=== PATIENT | female | born 1955 | race Caucasian/White ===

== ENCOUNTER → 2017-12-03 | Outpatient (CLI) | payer MEDICARE, OTHER ==
--- NOTE | 2017-12-06 08:24 | MM ---
Reason for exam: additional evaluation requested from prior study. Last mammogram was performed 1 year and 4 months ago. History: Patient is postmenopausal. Benign US breast needle core LT of the left breast, July 27, 2016. Benign US breast needle core addl LT of the left breast, July 27, 2016. Physical Findings: Nurse did not find any significant physical abnormalities on exam. MG 3D Diag Mammo W/Cad RAVI Bilateral CC and MLO view(s) were taken. Prior study comparison: July 27, 2016, left breast MG diagnostic mammo LT wo CAD. July 15, 2016, left breast MG 3d work up w/cad LT. The breast tissue is heterogeneously dense. This may lower the sensitivity of mammography. Stable benign calcifications. There is chronic nodularity bilaterally. There is no dominant lesion. These results were verbally communicated with the patient and result sheet given to the patient on 12/03/17. ASSESSMENT: Incomplete: need additional imaging evaluation, BI-RAD 0 RECOMMENDATION: Ultrasound of the left breast.
--- NOTE | 2017-12-06 08:26 | USB ---
Reason for exam: additional evaluation requested from prior study. History: Patient is postmenopausal. Benign US breast needle core LT of the left breast, July 27, 2016. Benign US breast needle core addl LT of the left breast, July 27, 2016. US Breast LT Left breast ultrasound includes all four quadrants, the retroareolar region and axilla. Finding demonstrates a 6 x 4 x 5mm oval, cystic lesion at 6 o'clock seen on previous and a 6 x 4 x 4mm irregular, hypoechoic lesion at 7 o'clock previously biopsied, smaller in size. These results were verbally communicated with the patient and result sheet given to the patient on 12/03/17. ASSESSMENT: Benign, BI-RAD 2 RECOMMENDATION: Routine screening mammogram of both breasts in 1 year.
== END | disposition home or self-care (01) ==
LOC: RADMAMWWP 13:57
PROVIDERS: ATTEND Family Medicine
DX: R92.8 Other abnormal and inconclusive findings on diagnostic imaging of breast (principal); N64.9 Disorder of breast, unspecified
CPT/HCPCS: 77066; 76641; G0279

== ENCOUNTER → 2017-12-10 | Outpatient (CLI) | payer MEDICARE, OTHER | END | disposition home or self-care (01) | LOC: LABWHC1 10:02 | PROVIDERS: ATTEND Physical Medicine & Rehabilitation | DX: M47.27 Other spondylosis with radiculopathy, lumbosacral region (principal); M96.1 Postlaminectomy syndrome, not elsewhere classified; M43.16 Spondylolisthesis, lumbar region; N28.9 Disorder of kidney and ureter, unspecified | CPT/HCPCS: 36415; 82565; 84520 ==

== ENCOUNTER → 2018-08-08 | Outpatient (CLI) | payer MEDICARE, OTHER ==
--- NOTE | 2018-08-08 15:44 | XR ---
EXAMINATION TYPE: XR shoulder complete LT DATE OF EXAM: 08/08/2018 COMPARISON: NONE HISTORY: 62 year-old female left shoulder pain TECHNIQUE: 3 views FINDINGS: AC joint appears congruent. Subacromial space is preserved. No tendinous or bursal calcifications. No acute fracture, subluxation, or dislocation seen. Median sternotomy wires are present. IMPRESSION: No acute osseous abnormality seen.
== END ==
LOC: RADXRMAIN 11:50
PROVIDERS: ATTEND Family Medicine
DX: M25.512 Pain in left shoulder (principal)

== ENCOUNTER → 2022-09-11 | Outpatient (CLI) | payer MEDICARE ==
--- NOTE | 2022-09-11 16:48 | MR ---
EXAMINATION TYPE: MR cervical spine wo con DATE OF EXAM: 09/11/2022 COMPARISON: None HISTORY: Right sided neck pain, can't raise right arm, right arm pain TECHNIQUE: Multiplanar, multisequence images of the cervical spine were acquired without contrast. Findings: The craniovertebral junction relationships and prevertebral soft tissues are normal. The cervical vertebral segments are normal in height and alignment and there is no fracture or sublux ation. The C2-3, C3-4 and C4-5 intervertebral discs are normal in height without significant disc space narr owing or degeneration. There is mild to moderate degenerative disease at the C3-5-6 and C6-7 levels where there is mild to m oderate disc space narrowing and posterior disc bulge. There are no focal cervical disc herniations. There is mild cervical stenosis at the C5-6 and C6-7 levels. There is moderate neural foraminal steno sis 5 6 level bilaterally. The remaining neuroforamina in the cervical region are patent. The cervical cord is normal in size and signal intensity myelomalacia There are no paraspinal soft tissue masses or fluid collections. IMPRESSION: 1. Moderate degenerative disease at the C5-6 and C6-7 levels. 2. Mild cervical stenosis at the C5-6 and C6-7 levels. 3. Moderate neural foraminal stenosis at C5-6 bilaterally. 4. ormal cervical cord.
== END | disposition home or self-care (01) ==
LOC: RADMRIMAIN 15:31
PROVIDERS: ATTEND Family Medicine
DX: M48.02 Spinal stenosis, cervical region (principal); M99.71 Connective tissue and disc stenosis of intervertebral foramina of cervical region; M50.122 Cervical disc disorder at C5-C6 level with radiculopathy
CPT/HCPCS: 72141

== ENCOUNTER → 2023-01-07 | Outpatient (CLI) | payer MEDICARE ==
--- NOTE | 2023-01-07 12:13 | XR ---
EXAMINATION TYPE: XR chest 2V DATE OF EXAM: 01/07/2023 12:07 PM COMPARISON: Chest radiograph 10/23/2015. TECHNIQUE: XR chest 2V Frontal and lateral views of the chest. CLINICAL INDICATION:Female, 67 years old with history of CHEST; FINDINGS: Lungs/Pleura: There is no evidence of pleural effusion, focal consolidation, or pneumothorax. Pulmonary vascularity: Unremarkable. Heart/mediastinum: Cardiomediastinal silhouette is unremarkable. Musculoskeletal: No acute osseous pathology. Mild degenerative changes of the thoracic spine. Midline sternotomy wires and surgical clips project over the mediastinum. IMPRESSION: No acute cardiopulmonary disease/process.
== END | disposition home or self-care (01) ==
LOC: RADXRMAIN 11:54
PROVIDERS: ATTEND Orthopaedic Surgery Orthopaedic Surgery of the Spine
DX: R07.9 Chest pain, unspecified (principal)
CPT/HCPCS: 71046

== ENCOUNTER 2023-01-13 10:21 | Day surgery (SDC) | payer MEDICARE ==
[2023-01-07 15:12] VITALS: BMI 31.3
[~2023-01-13 10:21] MED LIST: DEXAMETHASONE SOD PHOSPHATE 4 MG/ML 1 ML VIAL IV ONE; HYDROmorphone 0.5 MG/0.5 ML SYRINGE IVP PRN; LIDOCAINE 1% (10MG/ML) FOR IV START INTRADERMA PRN; ONDANSETRON 4 MG/2 ML VIAL IVP ONE; ceFAZolin 1,000 MG in SODIUM CHLORIDE 0.9% IRRIGATIO 1,000 ML IRRIGATION PRN
[2023-01-13] MEDS: LACTATED RINGERS 1,000 ML IV SCH (10:56)
[2023-01-13 11:01] LABS: Glucose,Whole Blood 125 mg/dL (70-110)
[2023-01-13] MEDS ORDERED: fentaNYL (PF) 50 MCG/ML 2 ML AMP ONE (11:34)
[2023-01-13] MEDS ORDERED: ePHEDrine 50 MG/ML 1 ML VIAL ONE (11:34)
[2023-01-13] MEDS ORDERED: LIDOCAINE 2% INJ 20 MG/ML (2 ML VIAL) ONE (11:34)
[2023-01-13] MEDS ORDERED: MIDAZOLAM 2 MG/2 ML VIAL ONE (11:34)
[2023-01-13] MEDS ORDERED: SUCCINYLCHOLINE CHLORIDE 200 MG/10 ML VIAL IV ONE (11:34)
[2023-01-13] MEDS ORDERED: PROPOFOL 10 MG/ML 20 ML VIAL IV ONE (11:34)
[2023-01-13] MEDS ORDERED: THROMBIN (BOVINE) 5,000 UNIT VIAL TOPICAL ONE (11:39)
[2023-01-13] MEDS ORDERED: GELATIN SPONGE,ABSORB (LARGE) 1 EACH SPONGE TOPICAL ONE (11:39)
[2023-01-13] MEDS ORDERED: LIDOCAINE 0.5%-EPI 1:200,000 50 ML VIAL SQ ONE (11:39)
--- NOTE | 2023-01-13 13:00 | XR ---
EXAMINATION TYPE: XR cervical spine 1V DATE OF EXAM: 01/13/2023 12:35 PM INDICATION: Patient age:Female; 67 years old; Reason for study: NEEDLE PLACEMENT; COMPARISON: 10/23/2015 TECHNIQUE: The cervical spine was imaged in a single lateral intraoperative view. FINDINGS: Endotracheal tube in appropriate position. Multilevel degeneration changes throughout the spine. Surg ical needle placed at C5-C6 disc space IMPRESSION: Needle placed at C5-C6 disc space.
[2023-01-13] MEDS ORDERED: LACTATED RINGERS 1,000 ML IV ONE (13:09)
[2023-01-13] MEDS ORDERED: HYDROmorphone 1 MG/ML 1 ML SYRINGE IVP PRN (13:35)
[2023-01-13] MEDS ORDERED: CYCLOBENZAPRINE 5 MG TAB PO PRN (13:35)
[2023-01-13] MEDS ORDERED: HYDROcodone/APAP 5-325MG 1 EACH TAB PO PRN (13:35)
[2023-01-13] MEDS ORDERED: ONDANSETRON 4 MG/2 ML VIAL IVP PRN (13:35)
[2023-01-13] MEDS ORDERED: BENZOCAINE/MENTHOL LOZENG 1 EACH LOZENGE MUCOUS MEM PRN (13:35)
[2023-01-13] MEDS ORDERED: HYDROmorphone 0.5 MG/0.5 ML SYRINGE IVP PRN (13:35)
[2023-01-13] MEDS ORDERED: oxyCODONE-APAP 7.5-325MG 1 EACH TAB PO PRN (13:36)
--- NOTE | 2023-01-13 13:41 | P.OP ---
Date of Procedure: 01/13/23 Preoperative Diagnosis: Cervical stenosis C5 6 C6 7, herniated nucleus pulposis C5 6 C6 7, upper extremity radiculopathy, upper extremity weakness, degenerative disc disease, neck pain Postoperative Diagnosis: Same Anesthesia: GETA Pathology: none sent Condition: stable Disposition: PACU Description of Procedure: BRIEF OPERATIVE NOTE Preoperative Diagnosis:Cervical stenosis C5 6 C6 7, herniated nucleus pulposis C5 6 C6 7, upper extremity radiculopathy, upper extremity weakness, degenerative disc disease, neck pain Postoperative Diagnosis:Cervical stenosis C5 6 C6 7, herniated nucleus pulposis C5 6 C6 7, upper extremity radiculopathy, upper extremity weakness, degenerative disc disease, neck pain Procedure: Anterior cervical decompression with discectomy and fusion C5 6 C6 7 Placement of interbody graft C5 6 C6 7 Application of anterior cervical plate C5 6 and 7 Surgeon: Dr. Justice Systems Manager: Oni Jessica is present throughout the entire the case persistence during positioning, dissection, exposure, visualization, and all crucial elements of the case as well as closure. Anesthesia: General anesthesia per Dr. Bhat Estimated blood loss: Approximately 50 mL Complications: None apparent Components implanted: Vikos allograft bone graft and 1 mL of DBX bone putty and K2M [place] anterior cervical plate system Disposition: To recovery room in good stable condition. OPERATIVE INDICATIONS The patient has had long-standing issues in their neck and upper extremities. She has been having significant neck and upper extremities with some weakness in her arm. She was found have severe stenosis with disc herniation at C5 6 and C6 7 which correlated well with her neck and upper extremity symptoms. The patient has been through conservative treatment. We discussed various treatment options including surgery, and the patient wishes to proceed with surgery We discussed the risk, patient's alternatives and benefits of surgery including but not limited to, risk of bleeding risk of infection, risk of need for further surgery, risk of decreased, loss of motion, muscle function, malunion nonunion, hardware failure, nerve damage, paralysis, heart attack, and . OPERATIVE SUMMARY After discussing all the risks, patient alternatives and benefits at length, the patient elected to proceed with surgical intervention, signed informed consent, and presented for their procedure. The patient was seen and examined in the preoperative holding area and the surgical site was marked. The patient was given antibiotics and brought to the operating room. The patient was positioned on the operating room table in a supine position being careful to pad any bony prominences and pressure points. The patient was sedated and intubated by anesthesia in standard fashion. Once the airway and C- spine were stabilized the patient's arms were padded and tucked at her side, with her shoulders gently taped. The head was placed in a donut pad with the neck in good neutral alignment and position. We were careful to maintain the patient's cervical spine and good neutral alignment and position throughout. The patient was prepped and draped in a normal standard fashion. An appropriate timeout and keystone protocol performed. We were able to proceed with the surgery. The local wound area was infiltrated with local anesthetic. An incision was made transversely approximately 2-1/2 cm over the appropriate levels at C6. Dissection was taken down subcutaneously to the level of the platysma which was split in line with its fibers. Dissection was taken with a carotid approach, with the trachea and esophagus medial and the carotid sheath laterally. We dissected down to the anterior surface of the vertebral bodies. Intraoperative x-ray was taken which showed a marker at the appropriate level at C5 6. With the appropriate level positively confirmed, we were able to proceed with discectomy at the appropriate levels first at C5 6 and then at C6 7. All of the operative levels were exposed appropriately. The patient had all their twitches back, and there was no evidence of recurrent laryngeal issue. The wound was copiously irrigated and suctioned dry as had been done periodically throughout the case. At the appropriate level/levels, starting at C5 6 and C6 7 I established an annulotomy with an 11 blade scalpel. A discectomy was performed with a combination of pituitary rongeurs, curettes, a high-speed bur, and Kerrison rongeurs. The posterior longitudinal ligament was taken down as were any posterior osteophytes. This gave good central and bilateral foraminal decompression. There is no evidence of any dural tear or leak. The endplates were prepared with a high-speed bur. With the endplates in good parallel position, I was able to size for the appropriate size interbody graft. The wound was irrigated and suctioned dry the graft was prepared and malleted into position. It had good alignment and position with the anterior surface flush with the anterior surface of the vertebral bodies of C5 6 and 70. This was done similarly the appropriate levels. With the grafts intact, I was able to measure and contour and appropriate sized plate. The plate was positioned at the midline over the appropriate levels at C5 6 and 7. Screw holes were established with a hand drill and drill guide. Screws were placed in good alignment and position with excellent bony purchase. They were seated under the locking device. The construct was checked and found to be stable. Intraoperative x-ray was taken which showed good alignment and position of the implants at the appropriate levels. There was no evidence of any dural tear or leak. Good hemostasis was maintained. The wound was copiously irrigated and suctioned dry as had been done periodically throughout the case. The platysma was closed with absorbable suture. The subcutaneous tissue was closed. The subcuticular tissue was closed with absorbable suture. The wound was cleaned and dried and dressed appropriately. A soft cervical collar was placed appropriately. The patient was woken up by anesthesia, extubated, transferred back gently to their hospital bed and brought to the recovery room in good stable condition. The patient will be admitted to the hospital for appropriate postoperative care, medical management and monitoring. We will continue to follow them closely about the postoperative course.
--- NOTE | 2023-01-13 13:57 | XR ---
EXAMINATION TYPE: XR cervical spine 1V DATE OF EXAM: 01/13/2023 1:37 PM INDICATION: Patient age:Female; 67 years old; Reason for study: HARDWARE PLACEMENT; COMPARISON: 01/13/2023 intraoperative. TECHNIQUE: The cervical spine was imaged in frontal, lateral, and odontoid. FINDINGS: Fixation hardware in the cervical spine extending from C5-C6 and C7. Hardware appears intact. Endotra cheal tube in place. Postsurgical changes with hardware in appropriate. No evidence for acute fracture. IMPRESSION: Postsurgical changes with hardware in appropriate position.
[2023-01-13 14:50] LABS: Glucose,Whole Blood 108 mg/dL (70-110)
[2023-01-13] MEDS ORDERED: SODIUM CHLORIDE 0.9% 1,000 ML IV ONE (14:59)
[2023-01-13] MEDS: SODIUM CHLORIDE 0.9% 1,000 ML IV SCH (16:08)
[2023-01-13] MEDS ORDERED: PRAZOSIN 1 MG CAP PO SCH (21:00)
[2023-01-13] MEDS ORDERED: traZODone HCL 50 MG TAB PO SCH (21:00)
[2023-01-13] MEDS ORDERED: METOPROLOL SUCCINATE (ER) 50 MG TAB.ER.24H PO SCH (21:00)
[2023-01-13] MEDS ORDERED: MAGNESIUM OXIDE 400 MG TAB PO SCH (21:00)
[2023-01-13] MEDS ORDERED: ATORVASTATIN 40 MG TAB PO SCH (21:00)
[2023-01-13] MEDS ORDERED: metFORMIN 500 MG TAB PO SCH (21:00)
[2023-01-13] MEDS ORDERED: OXYBUTYNIN XL 5 MG TAB.ER.24 PO SCH (21:00)
[2023-01-14 02:22] VITALS: RESP 18
[2023-01-14] MEDS: LACTATED RINGERS 1,000 ML IV SCH (03:45)
[2023-01-14] MEDS: SODIUM CHLORIDE 0.9% 1,000 ML IV SCH (03:46)
[2023-01-14 07:49] VITALS: BP 99/60; PULSE 65; TEMP 97.6
[2023-01-14] MEDS ORDERED: ASPIRIN 325 MG TAB PO SCH (09:00)
--- NOTE | 2023-01-14 09:14 | P.DS ---
Providers Attending physician: Marlo Justice Primary care physician: [facility] Course: The patient presented on the day of admission as per their operative note. She is postoperative day 1 status post anterior cervical decompression with discectomy and fusion C5 6 C6 7 for her cervical stenosis with lower extremity radiculopathy. She feels she is doing well. She feels her arms are making some progress. She's been able to tolerate soft diet. She is ambulatory and voiding freely. Physical Exam The incision site is clean dry and intact. Her neck is soft and supple. There is no erythema no drainage. There is no purulence no evidence of infection. Abdomen soft and nontender. Chest has good excursion with deep inspiration and expiration. The patient has active and passive range of motion intact at the upper and lower extremities. There is no acute change in neurologic status. She has good range of motion of bilateral upper extremities. Hospital Course Postoperative day #1 status post anterior cervical decompression with discectomy and fusion C5 6 C6 7 for cervical stenosis with disc herniation and upper extremity radiculopathy. The patient has been making good progress postoperatively. They have completed the prophylactic antibiotics without any signs or symptoms of infection. The patient has been able to advance their diet, and is tolerating diet adequately. The pain was initially controlled with IV medications and is now controlled appropriately with oral medications. The patient has been able to increase their mobilization. The patient has progressed appropriately. I think they are in good stable condition for discharge today. They will be sent home with appropriate prescriptions. I answered their questions to the best of my ability in a language that they can understand and they are agreeable with the plan. They will follow up as directed in approximately 2 weeks or sooner if she is having problems. She states that she has pain medication already at home. Patient Condition at Discharge: Good Plan - Discharge Summary Discharge Rx Participant: Yes New Discharge Prescriptions: No Action Aspirin 325 mg PO DAILY traZODone HCL [Desyrel] 50 mg PO HS oxyCODONE HCL/ACETAMINOPHEN [oxyCODONE HCL/ACETAMINOPHEN 7.5-325] 1 tab PO QID PRN PRN Reason: Pain metFORMIN HCL [Glucophage] 500 mg PO HS Prazosin HCl [Minipress] 2 mg PO HS Tolterodine ER [Detrol LA] 4 mg PO HS Rosuvastatin [Crestor] 20 mg PO HS Metoprolol Succinate (ER) [Toprol Xl] 50 mg PO HS Meloxicam [Mobic] 15 mg PO DAILY Magnesium 400 mg PO HS Discharge Medication List Aspirin 325 mg PO DAILY 10/23/15 [History] Magnesium 400 mg PO HS 01/07/23 [History] Meloxicam [Mobic] 15 mg PO DAILY 01/07/23 [History] Metoprolol Succinate (ER) [Toprol Xl] 50 mg PO HS 01/07/23 [History] Prazosin HCl [Minipress] 2 mg PO HS 01/07/23 [History] Rosuvastatin [Crestor] 20 mg PO HS 01/07/23 [History] Tolterodine ER [Detrol LA] 4 mg PO HS 01/07/23 [History] metFORMIN HCL [Glucophage] 500 mg PO HS 01/07/23 [History] oxyCODONE HCL/ACETAMINOPHEN [oxyCODONE HCL/ACETAMINOPHEN 7.5-325] 1 tab PO QID PRN 01/07/23 [History] traZODone HCL [Desyrel] 50 mg PO HS 01/07/23 [History] Follow up Appointment(s)/Referral(s): Marlo Justice DO [Doctor of Osteopathic Medicine] - 2 Weeks Activity/Diet/Wound Care/Special Instructions: Keep site clean. May shower with waterproof Tegaderm intact. Do not soak in a tub. After 72 hours postoperatively, patient May remove dressing and then may shower with area uncovered. Leave glue intact and allow it to fray off on its own. May ambulate as tolerated. Avoid heavy or rigorous activity. No repetitive bending twisting or lifting. No overhead work. Discharge Disposition: HOME SELF-CARE
== END 2023-01-14 11:58 | disposition home or self-care (01) ==
LOC: OR 10:21 → 4SSUR 14:35 → OR 01-14 11:58
PROVIDERS: ATTEND Orthopaedic Surgery Orthopaedic Surgery of the Spine
DX: M50.122 Cervical disc disorder at C5-C6 level with radiculopathy (principal); M48.02 Spinal stenosis, cervical region
CPT/HCPCS: 22845; 22551; 22552; 20930; 20931; 94760; 86900; 86901; 86850; 72020; C1713 ×2; C1762; J2250; J0330; J0690 ×3; J2405; J3010; J2704; J1170; J2001

== ENCOUNTER → 2023-04-19 | Outpatient (CLI) | payer MEDICARE ==
--- NOTE | 2023-04-19 14:23 | MM ---
Reason for Exam: Follow-up at short interval from prior study. Last mammogram was performed 1 year(s) and 4 month(s) ago. Patient History: Menarche at age 13. First Full-Term at age 20. Left ovary removed at age 48. Right ovary removed at age 48. Hysterectomy at age 48. Postmenopausal. 07/27/2016, Benign Core Biopsy on the left side. 07/27/2016, Benign Core Biopsy on the left side. Risk Values: María 5 year model risk: 2.1%. NCI Lifetime model risk: 6.8%. Tissue Density: There are scattered fibroglandular densities. Findings: Analyzed By CAD. Stable fibroglandular tissue dating back to 10/09/2021. No new suspicious masses, calcifications or distortions. Overall Assessment: Incomplete: need additional imaging evaluation, BI-RAD 0 Management: Diagnostic Breast Ultrasound of the right breast. Results were given to the patient verbally at the time of exam. Patient should continue monthly self-breast exams. A clinical breast exam by your physician is recommended on an annual basis. This exam should not preclude additional follow-up of suspicious palpable abnormalities. Note on María scores and lifetime risk: 1. A María score greater than 3% is considered moderate risk. If this is the case, consider specialist referral to assess eligibility for a risk reducing agent. 2. If overall lifetime risk for the development of breast cancer is 20% or higher, the patient may qualify for future screening with alternating mammogram and breast MRI. Electronically signed and approved by: Jimbo Heath DO
--- NOTE | 2023-04-19 14:39 | USB ---
Reason for Exam: Clinical finding. Patient History: Menarche at age 13. First Full-Term at age 20. Left ovary removed at age 48. Right ovary removed at age 48. Hysterectomy at age 48. Postmenopausal. 07/27/2016, Benign Core Biopsy on the left side. 07/27/2016, Benign Core Biopsy on the left side. Risk Values: María 5 year model risk: 2.1%. NCI Lifetime model risk: 6.8%. Technique: Method: Targeted. Prior Study Comparison: 12/03/2017 Bilateral Diagnostic Mammogram, [facility]. 10/09/2021 Bilateral Screening Mammogram, [facility] . 11/27/2021 Right Diagnostic Mammogram, [facility] . Findings: The lower section of the breast of the right breast, the axilla of the right breast and the retroareolar of the right breast were scanned. Imaged: Ultrasound imaging of: All 4 quadrants, the retroareolar region and axilla. No evidence for organizing fluid collection or mass. Overall Assessment: Negative, BI-RAD 1 Management: Screening Mammogram of both breasts in 1 year. A clinical breast exam by your physician is recommended on an annual basis and results should be correlated with mammographic findings. This exam should not preclude additional follow-up of suspicious palpable abnormalities. Results were given to the patient verbally at the time of exam. Electronically signed and approved by: Jimbo Heath DO
== END | disposition home or self-care (01) ==
LOC: RADMAMWWP 13:31
PROVIDERS: ATTEND Family Medicine
DX: N64.59 Other signs and symptoms in breast (principal); Z78.0 Asymptomatic menopausal state
CPT/HCPCS: 77066; 76642; G0279; 77062

== ENCOUNTER → 2024-07-28 | Outpatient (CLI) | payer MEDICARE ==
--- NOTE | 2024-07-31 09:02 | MM ---
Reason for Exam: Screening (asymptomatic). Last mammogram was performed 1 year(s) and 4 month(s) ago. Patient History: Menarche at age 13. First Full-Term at age 20. Left ovary removed at age 48. Right ovary removed at age 48. Hysterectomy at age 48. Postmenopausal. 07/27/2016, Benign Core Biopsy on the left side. 07/27/2016, Benign Core Biopsy on the left side. Risk Values: María 5 year model risk: 2.1%. NCI Lifetime model risk: 6.5%. Prior Study Comparison: 10/09/2021 Bilateral Screening Mammogram, [facility] . 11/27/2021 Right Diagnostic Mammogram, [facility] . 04/19/2023 Bilateral MG 3D diag mammo w/cad RAVI, [facility]. Tissue Density: The breasts are heterogeneously dense, which may obscure small masses. Findings: Analyzed By CAD. Left breast biopsy clips. Right breast: There is no suspicious group of microcalcifications or new suspicious mass. Left breast: There is no suspicious group of microcalcifications or new suspicious mass. Overall Assessment: Negative, BI-RAD 1 Management: Screening Mammogram of both breasts in [address] [facility] will attempt to contact patient to return for supplemental views and ultrasound if indicated. Patient should continue monthly self-breast exams. A clinical breast exam by your physician is recommended on an annual basis. This exam should not preclude additional follow-up of suspicious palpable abnormalities. Note on María scores and lifetime risk: 1. A María score greater than 3% is considered moderate risk. If this is the case, consider specialist referral to assess eligibility for a risk reducing agent. 2. If overall lifetime risk for the development of breast cancer is 20% or higher, the patient may qualify for future screening with alternating mammogram and breast MRI. [facility], , 07/31/2024 8:57 AM. Electronically signed and approved by: Jimbo Heath DO
== END | disposition home or self-care (01) ==
LOC: RADMAMWWP 10:56
PROVIDERS: ATTEND Family Medicine
DX: Z12.31 Encounter for screening mammogram for malignant neoplasm of breast (principal); R92.333 Mammographic heterogeneous density, bilateral breasts; Z78.0 Asymptomatic menopausal state; Z90.722 Acquired absence of ovaries, bilateral
CPT/HCPCS: 77063; 77067

== ENCOUNTER → 2024-08-30 | Outpatient (CLI) | payer MEDICARE ==
[2024-08-30 16:08] LABS: Blood Urea Nitrogen 16.3 mg/dL (9.0-27.0); Carbon Dioxide 26.9 mmol/L (21.6-31.8); Chloride 104 mmol/L (96-109); Potassium 4.2 mmol/L (3.5-5.5); Sodium 140 mmol/L (135-145)
[2024-08-30 16:09] LABS: HCT 43.8 % (37.2-46.3); HGB 14.6 g/dL (12.0-15.0); MCH 30.9 pg (27.0-32.0); MCHC 33.3 g/dL (32.0-37.0); MCV 92.6 FL (80.0-97.0); Mean Platelet Volume 9.8 FL (9.5-12.2); NRBC Per 100 WBC 0 X 10*3/uL (0.00-0.01); Platelet Count 189 X 10*3/uL (140-440); RBC 4.73 X 10*6/uL (4.10-5.20); RDW 12.3 % (11.5-14.5); WBC 5.54 X 10*3/uL (4.50-10.00)
== END | disposition home or self-care (01) ==
LOC: LABPAT 11:17
PROVIDERS: ATTEND Internal Medicine Interventional Cardiology
DX: Z01.818 Encounter for other preprocedural examination (principal); I35.1 Nonrheumatic aortic (valve) insufficiency
CPT/HCPCS: 80051; 82565; 84520; 85027

== ENCOUNTER 2024-09-05 07:30 | Day surgery (SDC) | payer MEDICARE ==
[~2024-09-05 07:30] MED LIST changes: +ALPRAZolam 0.25 MG TAB PO PRN; +ALPRAZolam 0.5 MG TAB PO PRN; -DEXAMETHASONE SOD PHOSPHATE 4 MG/ML 1 ML VIAL IV ONE; -HYDROmorphone 0.5 MG/0.5 ML SYRINGE IVP PRN; -LIDOCAINE 1% (10MG/ML) FOR IV START INTRADERMA PRN; +NITROGLYCERIN SL TABS 0.4 MG TAB SUBLINGUAL PRN; -ONDANSETRON 4 MG/2 ML VIAL IVP ONE; -ceFAZolin 1,000 MG in SODIUM CHLORIDE 0.9% IRRIGATIO 1,000 ML IRRIGATION PRN
[2024-09-05] MEDS: IV FLUID CONTINUATION 1,000 ML IV ONE ×2 (08:05→14:23)
[2024-09-05] MEDS: SODIUM CHLORIDE 0.9% 1,000 ML in EMPTY BAG 1 BAG IV SCH ×2 (08:05→16:30)
[2024-09-05] MEDS: ASPIRIN 325 MG TAB PO STA (08:20)
[2024-09-05] MEDS: MIDAZOLAM 2 MG/2 ML VIAL IVP ONE (09:54)
[2024-09-05] MEDS: LIDOCAINE 1% INJ 10MG/ML (20 ML MDV) SQ ONE (09:55)
[2024-09-05] MEDS: HEPARIN SODIUM,PORCINE (1 ML) 2,500 UNIT in SODIUM CHLORIDE 0.9% 250 ML IRRIGATION ONE (10:02)
[2024-09-05] MEDS: HEPARIN SODIUM,PORCINE 10,000 UNIT in SODIUM CHLORIDE 0.9% 1,000 ML IRRIGATION ONE (10:02)
[2024-09-05] MEDS: HEPARIN SODIUM 1,000 UN/ML (10ML VL) IVP ONE (10:17)
[2024-09-05] MEDS: TICAGRELOR 90 MG TAB PO ONE (10:23)
[2024-09-05] MEDS: IOPAMIDOL-370 100ML BTL INJ ONE ×2 (10:24→10:49)
[2024-09-05] MEDS: niCARdipine Syringe (1,000 mcg/10 mL) INTRACORON ONE (10:47)
[2024-09-05] MEDS: NITROGLYCERIN 1000MCG/10ML SYRINGE INTRACORON ONE (10:47)
[2024-09-05] MEDS ORDERED: RX INFO: IV CONTRAST WAS GIVEN 1 EACH MISC MISCELLANE PRN (10:56)
[2024-09-05] MEDS ORDERED: MAG HYDROX/AL HYDROX/SIMETH 30 ML CUP PO PRN (10:56)
[2024-09-05] MEDS ORDERED: oxyCODONE-APAP 7.5-325MG 1 EACH TAB PO PRN (10:56)
[2024-09-05] MEDS ORDERED: ATROPINE SULFATE 0.1 MG/ML 10ML SYRINGE IV PRN (10:56)
[2024-09-05] MEDS ORDERED: NITROGLYCERIN SL TABS 0.4 MG TAB SUBLINGUAL PRN (10:56)
[2024-09-05] MEDS ORDERED: ZOLPIDEM 5 MG TAB PO PRN (10:56)
--- NOTE | 2024-09-05 11:02 | P.PCN ---
Date of Procedure: 09/05/24 Operative Findings: CARDIAC CATHETERIZATION AND PERCUTANEOUS CORONARY INTERVENTION PERFORMING PHYSICIAN: Wilbert Park MD, [facility] PROCEDURE PERFORMED: 1. Selective right and left coronary angiogram and SERVIN to LAD angiogram and SVG to OM angiogram and SVG to PDA of RCA angiogram and left heart catheteriza tion 2. Successful PCI of the SVG to PDA using 3.0 x 23 mm Xience WES with an excellent angiographic results and adjunctive use of IVUS 3. Ultrasound-guided access of the right common femoral artery and selective right common femoral artery angiogram INDICATION: Symptomatic 68-year-old female patient with abnormal myocardial perfusion imaging stress test showing an inferior ischemia COMPLICATION: None APPROACH: Right common femoral artery LEVEL OF SEDATION: Moderate with the sedation time off 59 minutes PROCEDURE DESCRIPTION: After obtaining informed consent the patient was brought to the cardiac Fashion Consultant with right common femoral artery was cannulated using micropuncture technique under ultrasound guidance a micropuncture wire passed easily and I placed a 6 Mexican 11 cm sheath at the right common femoral artery and subsequently the sheath was flushed and secured. After that I did selective left and right coronary angiograms and JL 4 and JR4 catheters and also the SVG to RCA angiogram was performed using multipurpose catheter and then the SVG to LCx angiogram was performed using LCB guide catheter and then the SERVIN to LAD angiogram was performed using the JR4 catheter. After that I decided to intervene on the SVG to RCA with anticoagulation was initiated using heparin with continuous ACT monitoring. Subsequently I did engage the graft using multipurpose catheter. I did wired using 2 wires to have a better anchoring including 2 whisper wire. Intravascular ultrasound was performed that showed a diameter around 3.0 to 3.25 mm in diameter. Predilatation was performed using 2 mm balloon before I deployed 3.0 x 23 mm stent which was postdilated using 3.5 mm NC balloon with final angiogram showing excellent angiographic results and the procedure was completed with no complication SELECTIVE CORONARY ANGIOGRAM: The right coronary artery: . By the end I did selective right common femoral artery angiogram Left main: Has critical lesion appears to be in the range of 80% The left circumflex: Has a severe lesion as well appears to be in the range of 70 to 80% The left anterior descending artery: Is occluded the proximal Coronary bypasses angiogram: The SERVIN to LAD is patent The SVG to OM is patent The SVG to RCA has a tight lesion appears to be distally in the range of 70 to 80% appeared to be an ulcerated plaque HEMODYNAMICS: The LVEDP was 9 mmHg with no significant gradient across aortic valve CONCLUSION: Severe triple-vessel CAD as described above Patent SERVIN to LAD Patent SVG to OM Severe disease with ulcerated plaque involving the distal SVG to PDA. I performed successful PCI of that lesion POSTPROCEDURE MANAGEMENT: 1. Dual antiplatelet therapy using aspirin and Brilinta for at least 6 month 2. Aggressive cholesterol control 3. Follow-up with the patient
[2024-09-05] MEDS: hydrALAZINE HCL 20 MG/ML 1 ML VIAL IVP STA (14:04)
[2024-09-05] MEDS: METOPROLOL SUCCINATE (ER) 50 MG TAB.ER.24H PO SCH (20:18)
[2024-09-05] MEDS: PRAZOSIN 1 MG CAP PO SCH (20:18)
[2024-09-05] MEDS: MAGNESIUM OXIDE 400 MG TAB PO SCH (20:18)
[2024-09-05] MEDS: ATORVASTATIN 40 MG TAB PO SCH (20:18)
[2024-09-05] MEDS: OXYBUTYNIN 10 MG TAB.ER.24 PO SCH (20:18)
[2024-09-05] MEDS: TICAGRELOR 90 MG TAB PO SCH (20:51)
[2024-09-06 06:37] LABS: Basophils % (A) 0 %; Eosinophils # (A) 0.2 k/uL (0-0.7); Eosinophils % (A) 3 %; HCT 37.6 % (34.0-46.0); HGB 12.7 gm/dL (11.4-16.0); Lymphocytes # (A) 1.4 k/uL (1.0-4.8); Lymphocytes % (A) 22 %; MCH 31.1 pg (25.0-35.0); MCHC 33.7 g/dL (31.0-37.0); MCV 92.2 fL (80.0-100.0); Monocytes # (A) 0.4 k/uL (0-1.0); Monocytes % (A) 7 %; Neutrophils # (A) 4.2 k/uL (1.3-7.7); Neutrophils % (A) 67 %; Platelet Count 160 k/uL (150-450); RBC 4.07 m/uL (3.80-5.40); RDW 12.6 % (11.5-15.5); WBC 6.2 k/uL (3.8-10.6)
[2024-09-06 06:53] LABS: African American GFR (CKD) 72 (>60 ml/min/1.73 sqM); Anion Gap 4 mmol/L; Blood Urea Nitrogen 15 mg/dL (7-17); Carbon Dioxide 23 mmol/L (22-30); Chloride 109 mmol/L (98-107); Glucose 118 mg/dL (74-99); Non-African American GFR(CKD) 62 (>60 ml/min/1.73 sqM); Potassium 3.9 mmol/L (3.5-5.1); Sodium 136 mmol/L (137-145)
[2024-09-06] MEDS ORDERED: ASPIRIN 325 MG TAB PO SCH (09:00)
[2024-09-06] MEDS ORDERED: ASPIRIN 81 MG PO SCH (09:00)
[2024-09-06] MEDS: ASPIRIN 81 MG PO SCH (09:18)
[2024-09-06 10:37] VITALS: BP 110/55; PULSE 68; RESP 18; TEMP 98
[2024-09-06 11:21] VITALS: BMI 32.7
--- NOTE | 2024-09-06 20:24 | P.DS ---
Providers Attending physician: Wilbert Park Consults: 09/05/24 10:57 Consult Physician Routine Consulting Provider: [facility] Consult Reason/Comments: Post Interventional Patient Do you want consulting provider notified?: Already Contacted Primary care physician: C[facility] Course: The patient is a pleasant 68-year-old female patient who underwent a heart catheterization and PCI of the SVG to PDA She was seen and evaluated this morning which she is asymptomatic and hemodynamically stable. The right groin is soft and nontender and with no bruises. The patient is going to be discharged home on dual antiplatelet therapy with a statin and I will follow-up with the patient next week in the office Plan - Discharge Summary Discharge Rx Participant: No New Discharge Prescriptions: New Nitroglycerin Sl Tabs [Nitrostat] 0.4 mg SUBLINGUAL Q5M PRN #25 tab PRN Reason: Chest Pain Aspirin 81 mg PO DAILY tab Ticagrelor [Brilinta] 90 mg PO BID #180 tab Continue oxyCODONE HCL/ACETAMINOPHEN [oxyCODONE HCL/ACETAMINOPHEN 7.5-325] 1 tab PO QID PRN PRN Reason: Pain Prazosin HCl [Minipress] 2 mg PO HS Tolterodine ER [Detrol LA] 4 mg PO HS Rosuvastatin [Crestor] 20 mg PO HS Metoprolol Succinate (ER) [Toprol XL] 50 mg PO HS Magnesium 400 mg PO HS Discontinued Aspirin 325 mg PO DAILY Discharge Medication List Magnesium 400 mg PO HS 01/07/23 [History] Metoprolol Succinate (ER) [Toprol XL] 50 mg PO HS 01/07/23 [History] Prazosin HCl [Minipress] 2 mg PO HS 01/07/23 [History] Rosuvastatin [Crestor] 20 mg PO HS 01/07/23 [History] Tolterodine ER [Detrol LA] 4 mg PO HS 01/07/23 [History] oxyCODONE HCL/ACETAMINOPHEN [oxyCODONE HCL/ACETAMINOPHEN 7.5-325] 1 tab PO QID PRN 01/07/23 [History] Aspirin 81 mg PO DAILY tab 09/06/24 [Rx] Nitroglycerin Sl Tabs [Nitrostat] 0.4 mg SUBLINGUAL Q5M PRN #25 tab 09/06/24 [Rx] Ticagrelor [Brilinta] 90 mg PO BID #180 tab 09/06/24 [Rx] Follow up Appointment(s)/Referral(s): Wilbert aPrk MD [STAFF PHYSICIAN] - 1 Week (THE OFFICE WILL CALL YOU WITH AN APPOINTMENT DATE AND TIME) Patient Instructions/Handouts: *[facility] - After Heart Catheterization - Wheel Truer Instructions, After Radial Heart Catheterization (GEN) Activity/Diet/Wound Care/Special Instructions: *NO LIFTING, PUSHING, OR PULLING ANYTHING OVER 5 POUNDS FOR 5 DAYS *NO DRIVING FOR 3 DAYS *YOU CAN REMOVE YOUR DRESSING TOMORROW BUT DO NOT SUBMERSE YOUR PUNCTURE SITE IN WATER FOR A FEW DAYS TO PREVENT INFECTION - SO NO TUB BATHS, POOLS, HOT TUBS, DISHES....ETC *ANY SIGNS OF BLEEDING (HARDNESS, SWELLING, OR EXCESSIVE BRUISING) HOLD DIRECT PRESSURE ON YOUR PUNCTURE SITE AND COME TO THE NEAREST EMERGENCY ROOM TO GET YOUR PUNCTURE SITE LOOKED AT - DO NOT DRIVE YOURSELF! EITHER CALL EMS OR HAVE SOMEONE DRIVE YOU! Discharge Disposition: HOME SELF-CARE
== END 2024-09-06 12:39 | disposition home or self-care (01) ==
LOC: CATHCVL 07:30 → 3SCARD 10:50 → CATHCVL 09-06 12:39
PROVIDERS: ATTEND Internal Medicine Interventional Cardiology
DX: I25.810 Atherosclerosis of coronary artery bypass graft(s) without angina pectoris (principal); I25.84 Coronary atherosclerosis due to calcified coronary lesion; I10 Essential (primary) hypertension; E11.9 Type 2 diabetes mellitus without complications; E78.5 Hyperlipidemia, unspecified; I08.3 Combined rheumatic disorders of mitral, aortic and tricuspid valves; I27.20 Pulmonary hypertension, unspecified; F17.210 Nicotine dependence, cigarettes, uncomplicated; Z79.82 Long term (current) use of aspirin; Z79.84 Long term (current) use of oral hypoglycemic drugs; Z79.899 Other long term (current) drug therapy
CPT/HCPCS: 92978; 93459; 80048; 85025; C9604; J2250; J0360; J1644 ×3; J2003; Q9967; J2305

== ENCOUNTER → 2025-03-26 | Outpatient (CLI) | payer MEDICARE ==
[2025-03-26 15:48] LABS: Anion Gap 9.70 mmol/L (4.00-12.00); Blood Urea Nitrogen 12.4 mg/dL (9.0-27.0); Carbon Dioxide 25.3 mmol/L (21.6-31.8); Chloride 105 mmol/L (96-109); Potassium 4.3 mmol/L (3.5-5.5); Sodium 140 mmol/L (135-145)
[2025-03-26 16:06] LABS: HCT 41.1 % (37.2-46.3); HGB 13.7 g/dL (12.0-15.0); MCH 30.6 pg (27.0-32.0); MCHC 33.3 g/dL (32.0-37.0); MCV 91.9 FL (80.0-97.0); NRBC Per 100 WBC 0 X 10*3/uL (0.00-0.01); Platelet Count 190 X 10*3/uL (140-440); RBC 4.47 X 10*6/uL (4.10-5.20); RDW 12.7 % (11.5-14.5); WBC 5.16 X 10*3/uL (4.50-10.00)
== END | disposition home or self-care (01) ==
LOC: LABPAT 09:57
PROVIDERS: ATTEND Internal Medicine Interventional Cardiology
DX: Z01.812 Encounter for preprocedural laboratory examination (principal); R07.9 Chest pain, unspecified
CPT/HCPCS: 80051; 82565; 84520; 85027

== ENCOUNTER 2025-04-02 08:33 | Day surgery (SDC) | payer MEDICARE ==
[2025-04-02] MEDS: SODIUM CHLORIDE 0.9% 1,000 ML in EMPTY BAG 1 BAG IV SCH ×2 (09:32→11:45)
[2025-04-02] MEDS: ASPIRIN 325 MG TAB PO STA (09:32)
[2025-04-02] MEDS: IV FLUID CONTINUATION 1,000 ML IV ONE (09:35)
[2025-04-02] MEDS: LIDOCAINE 1% INJ 10MG/ML (20 ML MDV) SQ ONE (10:30)
[2025-04-02] MEDS: MIDAZOLAM 2 MG/2 ML VIAL IVP ONE (10:30)
[2025-04-02] MEDS: fentaNYL (PF) 50 MCG/1 ML VIAL IVP ONE (10:30)
[2025-04-02] MEDS: MORPHINE SULFATE 4 MG/ML SYRINGE IVP ONE (10:33)
[2025-04-02] MEDS: HEPARIN SODIUM,PORCINE (1 ML) 2,500 UNIT in SODIUM CHLORIDE 0.9% 250 ML IRRIGATION PRN (10:38)
[2025-04-02] MEDS: HEPARIN SODIUM,PORCINE 10,000 UNIT in SODIUM CHLORIDE 0.9% 1,000 ML IRRIGATION PRN (10:38)
[2025-04-02] MEDS: HEPARIN SODIUM 1,000 UN/ML (10ML VL) IVP ONE (10:50)
[2025-04-02] MEDS: IOPAMIDOL-370 100ML BTL INJ ONE ×2 (11:14→11:30)
[2025-04-02] MEDS: niCARdipine Syringe (1,000 mcg/10 mL) INTRACORON ONE (11:17)
[2025-04-02] MEDS: NITROGLYCERIN 1000MCG/10ML SYRINGE INTRACORON ONE (11:17)
[2025-04-02] MEDS ORDERED: oxyCODONE-APAP 7.5-325MG 1 EACH TAB PO PRN (11:32)
[2025-04-02] MEDS ORDERED: NITROGLYCERIN SL TABS 0.4 MG TAB SUBLINGUAL PRN ×2 (11:32→11:33)
[2025-04-02] MEDS ORDERED: RX INFO: IV CONTRAST WAS GIVEN 1 EACH MISC MISCELLANE PRN (11:33)
[2025-04-02] MEDS ORDERED: ATROPINE SULFATE 0.1 MG/ML 10ML SYRINGE IV PRN (11:33)
[2025-04-02] MEDS ORDERED: MAG HYDROX/AL HYDROX/SIMETH 30 ML CUP PO PRN (11:33)
[2025-04-02] MEDS ORDERED: ZOLPIDEM 5 MG TAB PO PRN (11:33)
--- NOTE | 2025-04-02 11:39 | P.PCN ---
Date of Procedure: 04/02/25 Operative Findings: CARDIAC CATHETERIZATION AND PERCUTANEOUS CORONARY INTERVENTION PERFORMING PHYSICIAN: Wilbert Park MD, [facility] PROCEDURE PERFORMED: 1. Selective right and left coronary angiogram and left heart catheterization along with SERVIN to LAD and SVG to OM and SVG to RCA 2. Successful stenting of SVG to RCA using 3.5 x 33 mm Xience WES with an excellent angiographic results 3. Adjunctive use of IVUS 4. Ultrasound-guided access of the right common femoral artery and selective right common femoral artery angiogram INDICATION: Chest discomfort concerning for angina COMPLICATION: None APPROACH: Right common femoral artery LEVEL OF SEDATION: Moderate with the sedation time off 59 minutes PROCEDURE DESCRIPTION: After obtaining informed consent the patient was brought to the cardiac Business Continuity Global Director. The right common femoral artery was cannulated using micropuncture technique under ultrasound guidance a micropuncture wire passed easily then I placed a 6 Prydeinig 11 cm sheath at the right common femoral artery and did selective right and left coronary angiogram using JR4 and JL 4 catheters. SERVIN to LAD angiogram and SVG to LCx angiogram performed using the JR4 catheter. The SVG to RCA angiogram was performed using multipurpose catheter. After that I did left heart catheterization using the JR4 catheter. After that I decided to intervene on the SVG to RCA with anticoagulation was initiated using heparin with continuous ACT monitoring. Subsequently I did engage the graft using multipurpose catheter. I did wired the graft using a run-through wire. IVUS was performed and showed a diameter between 3 to 3.5 mm. I predilated using 2.5 mm balloon before I predilated again using 3 mm NC balloon before I deployed 3.5 x 33 mm stent which was initially postdilated using 3.75 and subsequently 4 mm NC balloon with final angiogram showing excellent angiographic result SELECTIVE CORONARY ANGIOGRAM: The right coronary artery: Is a chronically occluded Left main: Has critical lesion The left circumflex: Has critical disease as well The left anterior descending artery: Is occluded in the proximal portion Coronary bypasses angiogram The SERVIN to LAD is patent The SVG to OM is patent The SVG to RCA has a tight lesion in the mid to distal portion HEMODYNAMICS: The LVEDP was 12 mmHg with no significant gradient across aortic valve CONCLUSION: 1. Severe triple-vessel CAD 2. Patent SERVIN to LAD and patent SVG to LCx 3. Severe disease involving the SVG to RCA which was stented as described above 4. Normal left-sided filling pressure POSTPROCEDURE MANAGEMENT: 1. Dual antiplatelet therapy using aspirin and Brilinta for 6 month 2. Aggressive cholesterol control 3. Follow-up with the patient
[2025-04-02] MEDS: METOPROLOL SUCCINATE (ER) 50 MG TAB.ER.24H PO SCH (21:47)
[2025-04-02] MEDS: PRAZOSIN 1 MG CAP PO SCH (21:49)
[2025-04-02] MEDS: MAGNESIUM OXIDE 400 MG TAB PO SCH (21:50)
[2025-04-02] MEDS: ATORVASTATIN 40 MG TAB PO SCH (21:50)
[2025-04-02] MEDS: OXYBUTYNIN 10 MG TAB.ER.24 PO SCH (21:50)
[2025-04-02 21:59] VITALS: RESP 16
[2025-04-02] MEDS: TICAGRELOR 90 MG TAB PO SCH (22:08)
[2025-04-03 07:29] VITALS: BP 107/64; PULSE 64; TEMP 98
[2025-04-03 08:42] LABS: Basophils # (A) 0.03 10*3/uL (0.00-0.10); Basophils % (A) 0.5 %; Eosinophils # (A) 0.17 10*3/uL (0.04-0.35); Eosinophils % (A) 2.8 %; HCT 40.5 % (37.2-46.3); HGB 14.1 g/dL (12.0-15.0); Lymphocytes # (A) 1.51 10*3/uL (0.90-5.00); Lymphocytes % (A) 24.8 %; MCH 31.2 pg (27.0-32.0); MCHC 34.8 g/dL (32.0-37.0); MCV 89.6 fL (80.0-97.0); Monocytes # (A) 0.44 10*3/uL (0.20-1.00); Monocytes % (A) 7.2 %; Neutrophils # (A) 3.91 10*3/uL (1.80-7.70); Neutrophils % (A) 64.4 %; Platelet Count 172 10*3/uL (140-440); RBC 4.52 10*6/uL (4.10-5.20); RDW 12.7 % (11.5-14.5); WBC 6.08 10*3/uL (4.50-10.00)
[2025-04-03] MEDS: ASPIRIN 81 MG PO SCH (08:52)
[2025-04-03 09:12] LABS: African American GFR (CKD) 73 (>60 ml/min/1.73 sqM); Anion Gap 10 mmol/L; Blood Urea Nitrogen 13 mg/dL (7-17); Calcium 9.3 mg/dL (8.4-10.2); Carbon Dioxide 23 mmol/L (22-30); Chloride 104 mmol/L (98-107); Glucose 133 mg/dL (74-99); Non-African American GFR(CKD) 63 (>60 ml/min/1.73 sqM); Potassium 4.5 mmol/L (3.5-5.1); Sodium 137 mmol/L (137-145)
[2025-04-03 09:14] LABS: African American GFR (CKD) 73 (>60 ml/min/1.73 sqM); Non-African American GFR(CKD) 64 (>60 ml/min/1.73 sqM)
--- NOTE | 2025-04-03 11:35 | P.DS ---
Providers Attending physician: Wilbert Park Consults: 04/02/25 11:33 Consult Physician Routine Consulting Provider: [facility] Consult Reason/Comments: Post Interventional Patient Do you want consulting provider notified?: Already Contacted Primary care physician: Caleb [facility] Hospital Course: This is a 69-year-old female who underwent cardiac catheterization yesterday with Dr. Park with stenting of the SVG to RCA. Patient examined this morning at bedside. Patient is doing well with no complications noted post procedure. She denies any complaints of chest pain or shortness of breath. Right femoral cath site soft with no hematoma noted. Vital signs are stable. The patient was deemed stable for discharge home today from a cardiac standpoint. She will continue on dual antiplatelet therapy with aspirin and Brilinta for 6 months. Continue statin with LDL goal less than 70. Please see EMR for further hospital course details. Discharge diagnosis Coronary artery disease status post PCI of the SVG to RCA Nurse practitioner note has been reviewed by physician. Signing provider agrees with the documented findings, assessment, and plan of care documented by MEDICAL PHOTOGRAPHER as a scribe. Plan - Discharge Summary Discharge Rx Participant: No New Discharge Prescriptions: Continue oxyCODONE HCL/ACETAMINOPHEN [oxyCODONE HCL/ACETAMINOPHEN 7.5-325] 1 tab PO QID PRN PRN Reason: Pain Nitroglycerin Sl Tabs [Nitrostat] 0.4 mg SUBLINGUAL Q5M PRN #25 tab PRN Reason: Chest Pain traZODone HCL [Desyrel] 50 mg PO HS Buprenorphine [Buprenorphine 10MCG/HR] 1 patch TRANSDERM WEEKLY PRN PRN Reason: Pain Prazosin HCl [Minipress] 2 mg PO HS Tolterodine ER [Detrol LA] 4 mg PO HS Rosuvastatin [Crestor] 20 mg PO HS Metoprolol Succinate (ER) [Toprol XL] 50 mg PO HS Magnesium 400 mg PO HS Aspirin 81 mg PO DAILY tab Ticagrelor [Brilinta] 90 mg PO BID #180 tab Discharge Medication List Magnesium 400 mg PO HS 01/07/23 [History] Metoprolol Succinate (ER) [Toprol XL] 50 mg PO HS 01/07/23 [History] Prazosin HCl [Minipress] 2 mg PO HS 01/07/23 [History] Rosuvastatin [Crestor] 20 mg PO HS 01/07/23 [History] Tolterodine ER [Detrol LA] 4 mg PO HS 01/07/23 [History] oxyCODONE HCL/ACETAMINOPHEN [oxyCODONE HCL/ACETAMINOPHEN 7.5-325] 1 tab PO QID PRN 01/07/23 [History] Aspirin 81 mg PO DAILY tab 09/06/24 [Rx] Nitroglycerin Sl Tabs [Nitrostat] 0.4 mg SUBLINGUAL Q5M PRN #25 tab 09/06/24 [Rx] Ticagrelor [Brilinta] 90 mg PO BID #180 tab 09/06/24 [Rx] Buprenorphine [Buprenorphine 10MCG/HR] 1 patch TRANSDERM WEEKLY PRN 03/29/25 [History] traZODone HCL [Desyrel] 50 mg PO HS 03/29/25 [History] Follow up Appointment(s)/Referral(s): Wilbert Park MD [STAFF PHYSICIAN] - 04/11/25 2:15 pm (FOLLOW UP APPOINTMENT MADE. ) Patient Instructions/Handouts: Heart Catheterization (DC) Discharge Disposition: HOME SELF-CARE
== END 2025-04-03 09:20 | disposition home or self-care (01) ==
LOC: CATHCVL 08:33 → 6NMEDSUR 11:30 → CATHCVL 04-03 09:20
PROVIDERS: ATTEND Internal Medicine Interventional Cardiology
DX: I25.810 Atherosclerosis of coronary artery bypass graft(s) without angina pectoris (principal); E78.5 Hyperlipidemia, unspecified; E11.8 Type 2 diabetes mellitus with unspecified complications; I10 Essential (primary) hypertension; F17.200 Nicotine dependence, unspecified, uncomplicated; Z79.02 Long term (current) use of antithrombotics/antiplatelets; Z79.82 Long term (current) use of aspirin; Z95.1 Presence of aortocoronary bypass graft; Z79.899 Other long term (current) drug therapy
CPT/HCPCS: 92978; 93459; 80048; 82565; 85025; 99152; 99153; C9604; C1887 ×2; C1769 ×3; C1894; C1874; C1725 ×4; C1753; J2250; J2270; J1644 ×3; J2003; Q9967; J3010; J2305